=== PATIENT | male | born 1970 | race Caucasian/White ===

== ENCOUNTER 2021-09-30 09:36 | Outpatient (CLI) | payer OTHER, SELFPAY | END 2021-09-30 23:59 | disposition short-term general hospital (02) | LOC: LABSPEC 09:37 | PROVIDERS: Visit Provider Physician Assistant Surgical | DX: U07.1 COVID-19 (principal) | CPT/HCPCS: 87635; U0003; U0005 ==

== ENCOUNTER 2023-11-18 10:09 | Emergency (ER) | payer OTHER, SELFPAY ==
[2023-11-18 10:11] VITALS: BP 148/103; PULSE 101; RESP 18; TEMP 36.4; O2SAT 99; BMI 29.7
[2023-11-18 10:30] VITALS: PULSE 85; RESP 16; O2SAT 99
--- NOTE | 2023-11-18 10:34 | CT_ITS ---
STUDY: CTA HEAD AND NECK WITH CONTRAST REASON FOR EXAM: Male, 53 years old. headache, confusion, vision change RADIATION DOSAGE (If Supplied By Facility): CTDIvol = ( 26.57 ) mGy, DLP = ( 1637.52 ) mGycm TECHNIQUE: CT angiography was performed with a multi-detector CT scanner. Data acquisition was obtained from the skull base through the vertex following intravenous administration of IV 100mL [id number]-370. MIP images were reconstructed from the axial data set. Post-processing of the angiographic images was performed, with multiplanar reformation and 3D reconstruction. Individualized dose optimization techniques were used for this CT. COMPARISON: No relevant priors. FINDINGS: Normal bilateral petrous carotid arteries. Normal right cavernous carotid artery with a normal supraclinoid bifurcation. Normal left cavernous carotid artery with a normal supraclinoid bifurcation. Normal right A1 segments of the anterior cerebral artery. Normal left A1 segments of the anterior cerebral artery. Normal intact anterior communicating artery (ACOM). Normal bilateral A2 segments of the anterior cerebral arteries. Normal right M1 and M2 segments of the middle cerebral arteries, with a normal M1 bifurcation. Normal left M1 and M2 segments of the middle cerebral arteries, with a normal M1 bifurcation. Normal right posterior communicating artery (PCOM). Normal left posterior communicating artery (PCOM). Normal bilateral vertebral arteries. Normal basilar artery with a normal basilar bifurcation. The visualized bilateral superior cerebellar (SCA) arteries are normal. Normal bilateral P1, P2 and visualized P3 segments of the posterior cerebral arteries. There is no demonstrated aneurysm of the ramona of Pulido. There is no demonstrated abnormality of the visualized brain. AORTIC ARCH: Normal visualized aortic arch. Normal origins of the brachiocephalic, left common carotid, and left subclavian arteries. RIGHT CAROTID ARTERIES: Normal right common carotid artery (CCA). Normal right common carotid bulb. Normal origin of the right internal carotid (ICA) artery without a hemodynamically significant stenosis, minimal peripheral atherosclerotic plaque noted. Normal visualized cervical portion of the right internal carotid artery. Normal origin of the right external carotid artery (ECA). LEFT CAROTID ARTERIES: Normal left common carotid artery (CCA). Normal left common carotid bulb. Normal origin of the left internal carotid (ICA) artery without a hemodynamically significant stenosis there is minimal calcified plaque in the proximal left ICA. Normal visualized cervical portion of the left internal carotid artery. Normal origin of the left external carotid artery (ECA). VERTEBRAL ARTERIES: Normal bilateral vertebral arteries. No suspicious enhancing lesion, airway narrowing or deviation. Degenerative changes noted throughout the cervical spine. Thyroid gland and lung apices are unremarkable CT/CTA Head AND Neck W/ Contrast IMPRESSION: No CTA evidence of significant stenosis or occlusive disease within the intracranial circulation or ramona of Pulido No demonstrated aneurysm or vascular malformation Mild calcified plaque in both proximal ICAs but no significant stenosis No CTA evidence of carotid or vertebral artery dissection Electronically Signed: Maximino Candelaria MD at 11:21 EST ,
--- NOTE | 2023-11-18 10:35 | EDS_ITS ---
HPI History of Present Illness Chief Complaint: Neuro S/Sx Detail of Chief Complaint: Not feeling well this morning with headache, vision change, confusion Informant: patient Narrative Narrative: Patient presents to the emergency department with multiple vague complaints. States that he started with mild headache yesterday. This morning he woke up about 530 in just felt off. He tried to shave and normally uses long strokes on his face but noticed that he was using short strokes and could not get himself to make longer strokes but denied any weakness in the arm. He then noticed later some discomfort in his upper chest. He had some blurred vision. Patient then had some discomfort in his left arm and leg which is chronic and does get that from time to time. He denies any recent illnesses. He denies falls or head injuries. This morning he still has a headache which is unusual for him. Patient has no medical history. He has no heart history. Currently most of his symptoms are resolved other than a mild discomfort in his head. PFSH PFS Home Medications No Known/Unobtainable [No Known Home Medications] 01/30/15 [History Last Taken Unknown] Allergy/AdvReac Type Severity Reaction Status Date / Time No Known Allergies Allergy Verified 11/18/23 10:11 Surgical History (Updated 11/18/23 @ 10:33 by Mishel Pruett) History of surgery on lower extremity Social History Smoking Status: Never smoker ROS ROS ED Review of Systems ROS Unobtainable: other Constitutional Constitutional ED: Reports lethargy; Denies chills, fever(s), sweats or weight loss Eyes Eyes: Denies blurry vision, change in vision or diplopia ENT ENT ED: Denies rhinorrhea or sore throat Cardiovascular Cardiovascular: Reports chest pain; Denies orthopnea or racing heartbeat Respiratory/Chest Respiratory/Chest: Denies cough, dyspnea, dyspnea on exertion, orthopnea or sput um Gastrointestinal Gastrointestinal: Denies abdominal pain, diarrhea, nausea or vomiting Genitourinary Genitourinary ED: Denies dysuria, hematuria or urinary frequency Musculoskeletal Musculoskeletal: Denies arthralgias, back pain, myalgias or neck pain Integumentary Denies abscess, Abrasions or rash Neurologic Neurologic: Reports headache(s) and paresthesias; Denies weakness Psychiatric Psychiatric: Denies anxiety, depression or suicidal thoughts Endocrine Endocrinology: Denies polydipsia, polyphagia or polyuria Hematologic/Lymphatic Hematologic/Lymphatic: Denies easy bleeding, easy bruising or lymphadenopathy Allergic/Immunologic Allergic/Immunologic ED: Denies mouth swelling, tongue swelling or urticaria EXAM Physical Exam Const Vital Signs: 11/18/23 10:11 11/18/23 10:30 11/18/23 11:22 Temperature 97.6 F L Temperature Source Temporal Pulse Rate 101 H 85 67 Respiratory Rate 18 16 15 Blood Pressure 148/103 H 106/64 Blood Pressure Mean 118 78 Pulse Ox 99 99 98 Oxygen Delivery Method Room Air Room Air Room Air 11/18/23 12:04 11/18/23 12:23 Temperature 98.1 F Temperature Source Pulse Rate 63 65 Respiratory Rate 16 17 Blood Pressure 132/60 H 132/60 H Blood Pressure Mean 84 84 Pulse Ox 93 96 Oxygen Delivery Method Room Air Positive well nourished and well developed General Appearance ED: well developed and NAD HEENT Reports TM's clear and moist mucous membranes normocephalic and atraumatic; Negative for trauma or tenderness Tympanic Membrane ED: Yes TM's clear Eyes PERRL and EOMs intact bilaterally General Eye ED: Negative for pale conjunctiva or scleral icterus Neck no lymphadenopathy, supple and no JVD General: Negative for tenderness Chest Wall inspection of chest normal and palpation of chest normal Chest: Negative for tenderness Resp normal respiratory effort and clear to auscultation bilaterally Effort and Inspection: Negative for respiratory distress or pain with movement Auscultation: Negative for rhonchi, wheezes or diminished lung sounds Cardio regular rate, regular rhythm, S1 normal heart sound, S2 normal heart sound and no murmurs Peripheral Pulses: pulses 2+ throughout GI normal to inspection, nondistended, normoactive bowel sounds, soft to palpation, non-tender, non-distended and no masses Back/Spine no CVA tenderness and no thoracic nor lumbar tenderness Extremity normal to inspection General Extremety ED: Negative for edema General Extremity: Negative for edema Neuro oriented x3, CN's II-XII intact bilaterally, no sensory deficits noted and gait normal Neuro Narrative: GCS is 15. NIH stroke scale is a 0. Finger-nose and qphx-vj-jfui's testing within normal limits, negative Romberg, negative , Fundi benign. Normal strength in the upper and lower extremities. Sensorium / Orientation: awake, alert, oriented to person, oriented to place and oriented to time Motor Exam: strength 5/5 throughout and strength abnormal Psych mental status grossly normal Skin no rashes or lesions noted and no wounds MDM MDM MDM Narrative Medical decision making narrative: Patient presents with multiple vague complaints. Describes some chest discomfort and some confusion and vision change. He now has a headache. Will obtain CT scan of his brain as well as CTA of head and neck. Will obtain EKG and troponin and basic labs. Will check for COVID and flu. CT scan of the brain without contrast unremarkable as well as CTA of head and neck were unremarkable. CBC with differential count of 8.5 with hemoglobin 14.9 and platelet count of 241. Chemistries unremarkable. Troponin was normal at 6. EKG obtained arrival showed a sinus rhythm with a rate of 80 bpm with no acute ST segment changes. COVID flu and RSV testing was negative. At this point etiology of his symptoms unclear. He is mostly resolved. Cannot rule out of started on a viral infection potentially or stress or anxiety. Do not feel patient having strokelike symptoms given the bilateral symptoms and the fact that he had some headache and neck pain. I will refer patient for follow-up to primary care physician. Recommended he take a baby aspirin daily. Lab Data Attestation: I reviewed the patient's lab results. Labs: Laboratory Results - last 24 hr 11/18/23 10:27 WBC 8.5 RBC 5.00 Hgb 14.9 Hct 44.9 MCV 89.8 MCH 29.8 MCHC 33.2 RDW Std Deviation 40.8 RDW Coeff of Irene 12.4 Plt Count 241 MPV 9.8 Immature Gran % (Auto) 0.200 Neut % (Auto) 76.4 H Lymph % (Auto) 14.0 L [place] % (Auto) 7.3 Eos % (Auto) 1.4 Baso % (Auto) 0.7 Absolute Neuts (auto) 6.5 Absolute Lymphs (auto) 1.19 Nucleated RBC % 0 Sodium 140 Potassium 3.9 Chloride 110 H Carbon Dioxide 25.0 Anion Gap 5 BUN 18 Creatinine 1.08 Estim Creat Clear Calc 95.47 Est GFR (MDRD) Af Amer 91 Est GFR (MDRD) Non-Af 76 BUN/Creatinine Ratio 16.7 Glucose 106 Calcium 8.9 Troponin I High Sens 6 Radiography Diagnostic Testing: Clinical Impression(s) from Imaging Studies Head/Neck CTA 02/29/24 10:34 IMPRESSION: No CTA evidence of significant stenosis or occlusive disease within the intracranial circulation or nome of Pulido No demonstrated aneurysm or vascular malformation Mild calcified plaque in both proximal ICAs but no significant stenosis No CTA evidence of carotid or vertebral artery dissection Electronically Signed: Maximino Candelaria MD at 11:21 EST Reading Location ID and State: [address] [place] [address] , Service support , EKG Initial EKG: Attestation: I personally reviewed and interpreted this EKG as follows: Comments: Sinus rhythm with rate of 80 bpm with no acute ST segment changes Discharge Plan Triage Chief Complaint: Neuro S/Sx ED Provider: Mirta Carmona Dx/Rx/DC Orders Clinical Impression: Blurred vision, Headache, Chest pain Instructions: ED Chest Pain, Uncertain Cause, ED Headache Unspecified Prescriptions: No Action No Known Home Medications Primary Care Provider: Care Physician,No Primary Referrals: Nathanael Durant MD [Med Staff - Active Staff] - 3-5 Days Care Physician,No Primary [Primary Care Provider] - Disposition Disposition: Home, Self Care Discharge Date/Time: 11/18/23 12:28
[2023-11-18 10:47] LABS: Absolute Lymphocyte Count 1.19 X10^3/uL (0.83-4.51); Absolute Neutrophil Count 6.5 X10^3/uL (2.0-7.7); Basophil# 0.06 X10^3/uL; Basophil% 0.7 % (0-1); Eosinophil# 0.12 X10^3/uL; Eosinophils% 1.4 % (0-5); Hematocrit 44.9 % (40-54); Hemoglobin 14.9 g/dL (13.0-16.5); Lymphocyte # 1.19 X10^3/ul (0.83-4.51); Mean Corp Hgb Conc 33.2 g/dL (32-36); Mean Corpuscular Hgb 29.8 pg (27.0-32.0); Mean Corpuscular Volume 89.8 fL (80-94); Mean Platelet Vol. 9.8 fl (6.2-12.0); Monocyte# 0.62 X10^3/uL; Monocyte% 7.3 % (0-10); NRBC Flagged by Analyzer 0 % (0-5); Neutrophil # 6.47 X10^3/uL (2.7-7.7); Neutrophil % 76.4 % (47-70); Platelet Count 241 K/mm3 (150-450); RBC Distribution Width CV 12.4 % (11.6-14.6); RBC Distribution Width SD 40.8 fl (35.1-43.9); White Blood Count 8.5 K/mm3 (4.4-11.0)
[2023-11-18 11:02] LABS: Anion Gap 5 (5-15); BUN 18 mg/dL (7-18); BUN/Creat Ratio 16.7 RATIO (10-20); Calcium,Total 8.9 mg/dL (8.5-10.1); Chloride 110 mmol/L (98-107); Creatinine, Serum 1.08 mg/dL (0.70-1.30); EST Glomerular Filtration Rate 76 mL/min (>60); Est Glom Filt Rate - Afr Amer 91 mL/min (>60); Estimated Creatinine Clearance 95.47 ml/min; Glucose 106 mg/dL (74-106); Potassium 3.9 mmol/L (3.5-5.1); Sodium Level 140 mmol/L (136-145); Troponin-I HS 6 pg/mL (3.0-78.0)
[2023-11-18] MEDS: 0.9% Normal Saline (1000mL) 1,000 ML 150 ML IV (11:05)
[2023-11-18 11:22] VITALS: BP 106/64; PULSE 67; RESP 15; O2SAT 98
[2023-11-18 12:04] VITALS: BP 132/60; PULSE 63; RESP 16; O2SAT 93
[2023-11-18 12:23] VITALS: BP 132/60; PULSE 65; RESP 17; TEMP 36.7; O2SAT 96
--- OUTSIDE RECORDS SUMMARY | 2023-11-18 12:52 | XMS RPT_ITS | CCD ---
Author Name Unknown Address [address] [place] [address] Organization [facility] Clinical Note 08-25-2021 Note Date & Type Note Facility 08-25-2021 Note Patient Outreach (LACY TNAV) ISAIAH WEN ([id number]) 1970 M Date Time Provider Department 08/25/21 LOLIS VELEZ During your visit today, we recorded the following information about you: Lolis Velez Population Health Navigator 08/25/2021 10:50 AM Signed POPULATION HEALTH NAVIGATION OUTREACH Action/FYI I spoke with patient and I will send him a letter with pcp link No care everywhere Verified address Contact made with patient or family member? YES Pt identified by name and : YES Outreach Outcome/Action Spoke to patient or caregiver: Patient will return the call or ask for return call mailing letter Reason for Outreach Attribution: Provider Off-boarding Payer: Payor: HOSPITAL/MEDICAL GENERIC / Plan: MEDICAL GENERIC / Product Type: Indemnity / Care Gap Reviewed:: Reminder: Reminder note to check Health Maintenance for items below Health Maintenance items due: COVID-19 VACCINE(1) Never done DEPRESSION SCREENING Never done HEPATITIS C SCREENING Never done HIV SCREENING Never done DTAP,TDAP,TD(1 - Tdap) Never done LIPID SCREEN Never done DIABETES SCREEN Never done COLORECTAL CANCER SCREENING Never done SHINGRIX VACCINE(1 of 2) Never done INFLUENZA(1) Never done Advanced Directives Completed: Have you ever planned for future healthcare decisions with a power of leather stitcher, living will, or advance directives? No. Please bring a copy to your next appointment or email to [email or web address] Referrals: N/A Message Sent to Practice: NO Navigation Signature: Lolis Velez Population Health Navigator August 25, 2021 10:34 AM Allergies As of Date: 08/25/2021 (No Known Allergies) Date Reviewed: 04/19/2020 Reviewed by: Cecelia Henriquez (Internist Medical Doctor Md Electric Meter Reader) Alan - Fully Assessed Reason for Visit: Population Health Navigation Outreach [3910] Cmt: Offboarding Problem List As Of Date: 08/25/2021 (None) Letter Text Encounter Status:Closed by AGUSTIN POPULATION HEALTH NAVIGATORLOLIS on 08/25/21 [facility] Progress note 08-25-2021 Note Date & Type Note Facility 08-25-2021 Note HNO ID: [id number] Author: Lolis Velez Population Health Navigator Service: ? Author Type: ? Type: Progress Notes Filed: 08/25/2021 10:50 AM Note Text: POPULATION HEALTH NAVIGATION OUTREACH Action/FYI I spoke with patient and I will send him a letter with pcp link No care everywhere Verified address Contact made with patient or family member? YES Pt identified by name and : YES Outreach Outcome/Action Spoke to patient or caregiver: Patient will return the call or ask for return call mailing letter Reason for Outreach Attribution: Provider Off-boarding Payer: Payor: HOSPITAL/MEDICAL GENERIC / Plan: MEDICAL GENERIC / Product Type: Indemnity / Care Gap Reviewed:: Reminder: Reminder note to check Health Maintenance for items below Health Maintenance items due: COVID-19 VACCINE(1) Never done DEPRESSION SCREENING Never done HEPATITIS C SCREENING Never done HIV SCREENING Never done DTAP,TDAP,TD(1 - Tdap) Never done LIPID SCREEN Never done DIABETES SCREEN Never done COLORECTAL CANCER SCREENING Never done SHINGRIX VACCINE(1 of 2) Never done INFLUENZA(1) Never done Advanced Directives Completed: Have you ever planned for future healthcare decisions with a power of leather stitcher, living will, or advance directives? No. Please bring a copy to your next appointment or email to [email or web address] Referrals: N/A Message Sent to Practice: NO Navigation Signature: Lolis Velez Population Health Navigator August 25, 2021 10:34 AM [facility] Clinical Note 07-09-2021 Note Date & Type Note Facility 07-09-2021 Note Patient Outreach (4C Q) ISAIHA WEN ([id number]) 1970 M Date Time Provider Department 07/09/21 SONNY ACOSTA (BECKI) 4CQ During your visit today, we recorded the following information about you: Sonny Acosta Pss 07/09/2021 9:12 AM Signed POPULATION HEALTH NAVIGATION OUTREACH Action/FYI Spoke to pt in regards to Colonoscopy/ Colorectal Cancer Screening and pt stated that they would call back to schedule Contact made with patient or family member? YES Pt identified by name and : YES Outreach Outcome/Action Spoke to patient or caregiver: Patient will return the call or ask for return call Reason for Outreach Care Gap or Scheduling/Wellness visits Payer: Payor: HOSPITAL/MEDICAL GENERIC / Plan: MEDICAL GENERIC / Product Type: Indemnity / Care Gap Reviewed:: Colorectal Cancer Screening Reminder: Reminder note to check Health Maintenance for items below Health Maintenance items due: DEPRESSION SCREENING Never done COVID-19 VACCINE(1) Never done HEPATITIS C SCREENING Never done HIV SCREENING Never done DTAP,TDAP,TD(1 - Tdap) Never done LIPID SCREEN Never done DIABETES SCREEN Never done COLORECTAL CANCER SCREENING Never done SHINGRIX VACCINE(1 of 2) Never done INFLUENZA(1) Never done Sonny Acosta Pss July 09, 2021 9:11 AM Allergies As of Date: 07/09/2021 (No Known Allergies) Date Reviewed: 04/19/2020 Reviewed by: Cecelia Henriquez (Internist Medical Doctor Md Electric Meter Reader) [place] - Fully Assessed Reason for Visit: Population Health Navigation Outreach [3910] Cmt: Colonoscopy/ Colorectal Cancer Screening Problem List As Of Date: 07/09/2021 (None) Encounter Status:Closed by ROSALINE CONNELL SONNY on 07/09/21 [facility] Progress note 07-09-2021 Note Date & Type Note Facility 07-09-2021 Note HNO ID: [id number] Author: Sonny Acosta Becki Service: ? Author Type: ? Type: Progress Notes Filed: 07/09/2021 9:12 AM Note Text: POPULATION HEALTH NAVIGATION OUTREACH Action/FYI Spoke to pt in regards to Colonoscopy/ Colorectal Cancer Screening and pt stated that they would call back to schedule Contact made with patient or family member? YES Pt identified by name and : YES Outreach Outcome/Action Spoke to patient or caregiver: Patient will return the call or ask for return call Reason for Outreach Care Gap or Scheduling/Wellness visits Payer: Payor: HOSPITAL/MEDICAL GENERIC / Plan: MEDICAL GENERIC / Product Type: Indemnity / Care Gap Reviewed:: Colorectal Cancer Screening Reminder: Reminder note to check Health Maintenance for items below Health Maintenance items due: DEPRESSION SCREENING Never done COVID-19 VACCINE(1) Never done HEPATITIS C SCREENING Never done HIV SCREENING Never done DTAP,TDAP,TD(1 - Tdap) Never done LIPID SCREEN Never done DIABETES SCREEN Never done COLORECTAL CANCER SCREENING Never done SHINGRIX VACCINE(1 of 2) Never done INFLUENZA(1) Never done Sonny Acosta Pss July 09, 2021 9:11 AM [facility] Summary Purpose Family History No Family History Records Found Advance Directives No Advanced Directives Records Found Additional Source Comments (unrecognized sect ion and content) No Status Records Found INFORMATION SOURCE (unrecogn ized section and content) FOR RECORDS PERTAINING TO PATIENTS WHO ARE OR HAVE BEEN ENROLLED IN A CHEMICAL DEPENDENCY/SUBSTANCEABUSE PROGRAM, SOME INFORMATION MAY BE OMITTED. This clinical summary was aggregated from multiple sources. Caution should be exercised in using it in the provision of clinical care. This summary normalizes information from multiple sources, and as a consequence, information in this document may materially change the coding, format and clinical context of patient data. In addition, data may be omitted in some cases. CLINICAL DECISIONS SHOULD BE BASED ON THE PRIMARY CLINICAL RECORDS. [employer] provides no warranty or guarantee of the accuracy or completeness of information in this document.
== END 2023-11-18 12:28 | disposition home or self-care (01) ==
PROVIDERS: Emergency Provider Emergency Medicine; Visit Provider Emergency Medicine
DX: H53.8 Other visual disturbances (principal); R07.9 Chest pain, unspecified; Z11.52 Encounter for screening for COVID-19; R41.0 Disorientation, unspecified
CPT/HCPCS: 70496; 70498; 80048; 84484; 85025; 87631; 93005; 96360; 99284; J7030; Q9967; A4216